=== PATIENT | female | born 1985 | race Caucasian/White ===

== ENCOUNTER 2021-09-15 06:06 | Emergency (ER) | payer BC ==
[2021-09-15 06:18] VITALS: BP 126/72; TEMP 97.9; BMI 25.8
[2021-09-15] MEDS ORDERED: SODIUM CHLORIDE 1,000 ML IV STA (07:34)
[2021-09-15 08:16] LABS: BASO % 0.4 % (0-2.0); EOS % 0.8 % (0-4.5); HEMATOCRIT 41.1 % (32.4-45.2); HEMOGLOBIN 13.8 GM/dL (10.7-15.3); LYMPH % 9.4 % (8-40); MCH 30.2 pg (25.7-33.7); MCHC 33.5 g/dl (32.0-36.0); MEAN CELL VOLUME 90.2 fl (80-96); MEAN PLT VOLUME 7.4 fl (7.5-11.1); MONO % 5.9 % (3.8-10.2); NEUT % 83.5 % (42.8-82.8); PLATELET COUNT 345 10^3/uL (134-434); RBC 4.56 M/mm3 (3.60-5.2); RDW 12.8 % (11.6-15.6); WHITE BLOOD COUNT 10.9 K/mm3 (4.0-10.0)
[2021-09-15 08:46] LABS: CALCIUM 9.2 mg/dL (8.5-10.1)
[2021-09-15 08:47] LABS: BLOOD UREA NITROGEN 9.3 mg/dL (7-18)
[2021-09-15 08:50] LABS: CREATININE 0.6 mg/dL (0.55-1.3)
[2021-09-15 08:51] LABS: BILIRUBIN,TOTAL 0.5 mg/dL (0.2-1)
[2021-09-15 08:59] LABS: HCG,QUALITATIVE URINE Negative
[2021-09-15 09:24] LABS: EPI CELLS 15 /uL (0-25.1); HYALINE CASTS 1 /uL (0-3.1); PH,URINE 5.5 (5.0-8.0); URINE APPEARANCE CLOUDY; URINE BACTERIA 27 /uL (0-1359); URINE BILIRUBIN NEGATIVE (NEGATIVE); URINE COLOR YELLOW; URINE GLUCOSE (UA) NEGATIVE (NEGATIVE); URINE KETONE 1+ (NEGATIVE); URINE LEUK ESTERASE TRACE (NEGATIVE); URINE NITRITE NEGATIVE (NEGATIVE); URINE PROTEIN 1+ (NEGATIVE); URINE RBC 1922 /uL (0-23.9); URINE UROBILINOGEN 0.2 mg/dL (0.2-1.0); URINE WBC 29 /uL (0-25.8)
[2021-09-15 11:00] VITALS: PULSE 78
== END 2021-09-15 11:01 | disposition home or self-care (01) ==
LOC: JER 06:06
PROC: 3E0337Z Introduction of Electrolytic and Water Balance Substance into Peripheral Vein, Percutaneous Approach (ICD-10-PCS; principal; 2021-09-15)
DX: R10.30 Lower abdominal pain, unspecified (principal); R31.9 Hematuria, unspecified; N28.1 Cyst of kidney, acquired
CPT/HCPCS: 36415; 74176-TC; 80053; 81003; 84703; 85025; 87086; 99284-25